=== PATIENT | male | born 1995 | race Caucasian/White ===

== ENCOUNTER 2018-02-07 22:52 | Emergency (ER) | payer MEDICAID ==
[~2018-02-07] VITALS: Ht 162.6 cm; Wt 103.0 kg
[2018-02-07 23:03] VITALS: Ht 162.6 cm; Wt 103.0 kg
[2018-02-07 23:33] LABS: BASOPHIL % 0.5 % (0-2); PLATELET COUNT 300 x10^3mcL (130-400); RED CELL DISTRIBUTION WIDTH 13.3 % (11.5-14.5)
[2018-02-07 23:52] LABS: ALBUMIN 3.5 g/dL (3.4-5.0); ALKALINE PHOSPHATASE 117 U/L (46-116); ALT/SGPT 77 U/L (16-63); AST/SGOT 35 U/L (15-37); BILIRUBIN TOTAL 0.2 mg/dL (0.20-1.00); CALCIUM 8.9 mg/dL (8.5-10.1); CHLORIDE SERUM 96 mmol/L (98-107); GFR1 > 60 mL/min; POTASSIUM SERUM 4.2 mmol/L (3.5-5.1); SODIUM SERUM 132 mmol/L (136-145)
[2018-02-07 23:53] LABS: GLUCOSE SERUM 469 mg/dL (74-106); TOTAL PROTEIN, SERUM 8.9 g/dL (6.4-8.2)
[2018-02-08 00:27] VITALS: BP 140/76
== END 2018-02-08 00:56 | disposition home or self-care (01) ==
LOC: ED 22:52
PROVIDERS: Emergency Medicine
DX: E11.65 Type 2 diabetes mellitus with hyperglycemia (principal); R68.2 Dry mouth, unspecified
CPT/HCPCS: 82962; J1815; J7030

== ENCOUNTER 2018-05-11 22:49 | Emergency (ER) | payer MEDICAID ==
[~2018-05-11] VITALS: Ht 162.6 cm; Wt 105.2 kg
[2018-05-11 22:58] VITALS: Ht 162.6 cm; Wt 105.2 kg
[2018-05-12 00:46] VITALS: BP 157/93
== END 2018-05-12 00:46 | disposition home or self-care (01) ==
LOC: ED 22:49
DX: B34.9 Viral infection, unspecified (principal); E11.9 Type 2 diabetes mellitus without complications
CPT/HCPCS: 82962

== ENCOUNTER 2018-11-06 15:55 | Emergency (ER) | payer MEDICAID ==
[~2018-11-06] VITALS: Ht 162.6 cm; Wt 103.4 kg
[2018-11-06 16:05] VITALS: Ht 162.6 cm; Wt 103.4 kg
[2018-11-06 17:45] VITALS: BP 116/71
== END 2018-11-06 17:45 | disposition home or self-care (01) ==
LOC: ED 15:55
DX: J02.0 Streptococcal pharyngitis (principal); E11.9 Type 2 diabetes mellitus without complications